=== PATIENT | female | born 1935 | race Asian ===

== ENCOUNTER 2022-01-08 06:02 | Inpatient (IN) | payer OTHER ==
[~2022-01-08] VITALS: Ht 160 cm; Wt 66.3 kg
[2022-01-08] VITALS (7 sets, daily range): BP systolic 84–139; BP diastolic 38–55
[2022-01-08 06:23] LABS: ABG BASE EXCESS 3.8 mmol/L (-2.0-3.0); ABG CARBOXYHEMOGLOBIN 0.2 % (0.0-1.5); ABG HCO3 27.3 mmol/L (22.0-26.0); ABG METHEMOGLOBIN 0.3 % (0.0-1.5); ABG OXYGEN CONTENT 16.5 mL/dL (15.0-23.0); ABG OXYGEN SATURATION 99.7 % (95.0-98.0); ABG OXYHEMOGLOBIN 99.2 % (94.0-100.0); ABG PCO2 50 mmHg (35-45); ABG PH 7.377 (7.35-7.450); ABG TOTAL HEMOGLOBIN 11.1 G/dL (12.0-18.0); PO2, ARTERIAL BG 386.2 mmHg (71.0-79.0); SOURCE, BLOOD GAS ARTERIAL; TEMPERATURE, FAHRENHEIT, BG 98.5 FAHREN (96.0-98.6)
[2022-01-08 06:24] LABS: O2 DEVICE,BLOOD GAS VENTILATOR (ROOM AIR); PEEP,BG 5 cm H2O; SITE, BLOOD GAS RT BRACHIAL; VT, ABG 400 ml
[2022-01-08] MEDS ORDERED: CefTRIAXone 1 GM/DEXTROSE 50 ML IV ONE (06:30)
[2022-01-08] MEDS ORDERED: MIDAZOLAM HCL 2 MG/2 ML VIAL IVP ONE (06:30)
[2022-01-08] MEDS ORDERED: MIDAZOLAM HCL 5 MG/ML VIAL IVP ONE (06:30)
[2022-01-08] MEDS ORDERED: ETOMIDATE 2 MG/ML 10 ML VIAL IVP ONE (06:30)
[2022-01-08] MEDS ORDERED: FentaNYL CIT 1000MCG/0.9% NACL 100 ML IV PRN ×2 (06:30→20:30)
[2022-01-08] MEDS ORDERED: ROCURONIUM BROMIDE 10 MG/ML 5 ML VIAL IVP ONE (06:30)
[2022-01-08 06:47] LABS: BASOPHILS % (AUTO) 0.9 % (0.0-2.0); EOSINOPHILS % (AUTO) 2.1 % (1.0-6.0); HEMATOCRIT 32.6 % (36-46); HEMOGLOBIN 10.3 g/dL (12.0-16.0); LYMPHOCYTES % (AUTO) 37.2 % (22.0-44.0); MEAN CORPUSCULAR HEMOGLOBIN 25.3 pg (26.0-34.0); MEAN CORPUSCULAR HGB CONC 31.6 G/dL (31.0-37.0); MEAN CORPUSCULAR VOLUME 80 fL (80-100); MONOCYTES # (AUTO) 0.8 K/uL (0.1-1.0); MONOCYTES % (AUTO) 9.9 % (2.0-9.0); NEUTROPHILS % (AUTO) 49.9 % (40.0-70.0); PLATELET COUNT (AUTO) 371 K/uL (150-450); RED BLOOD CELL COUNT(AUTO) 4.06 MIL/uL (4.00-5.20)
[2022-01-08 06:56] LABS: ANION GAP 6 mmol/L (8-16); CALCIUM, TOTAL 9.1 mg/dL (8.8-10.5); CARBON DIOXIDE 32 mmol/L (22-29); CHLORIDE 99 mmol/L (98-107); CREATININE 1.72 mg/dL (0.60-1.30); GLOMERULAR FILTR. RATE CALC 28 mL/min (>60); GLUCOSE,RANDOM 262 mg/dL (70-110); POTASSIUM 4.6 mmol/L (3.5-5.1); SODIUM SERUM 137 mmol/L (136-145); UREA NITROGEN, BLOOD 28 mg/dL (7-18)
[2022-01-08 07:03] LABS: INFLUENZA TYPE A NEGATIVE FOR TYPE A (NEGATIVE); INFLUENZA TYPE B NEGATIVE FOR TYPE B (NEGATIVE)
[2022-01-08 07:04] LABS: LACTIC ACID 1.8 mmol/L (0.4-2.0)
[2022-01-08 07:10] LABS: AMMONIA 74 umol/L (11-32)
[2022-01-08 07:14] LABS: B-TYPE NATRIURETIC PEPTIDE 521 pg/mL (0-100)
[2022-01-08 07:21] LABS: ALANINE AMINOTRANSFERASE 20 U/L (12-78); ALKALINE PHOSPHATASE 94 U/L (46-116); ASPARTATE AMINOTRANSFERASE 51 U/L (15-37); BILIRUBIN,TOTAL 0.5 mg/dL (0.1-1.0); C-REACTIVE PROTEIN QUANT 0.53 mg/dL (0.00-0.30); CREATINE KINASE, TOTAL ONLY 76 U/L (26-192); FERRITIN 23 ng/mL (8-252); FREE T4 (FREE THYROXINE) 1.57 ng/dL (0.76-1.46); LACTATE DEHYDROGENASE 301 U/L (81-234); LIPASE 73 U/L (73-393); THYROID STIMULATING HORMONE 4.84 uIU/mL (0.36-3.74); TOTAL PROTEIN, SERUM 7.6 g/dL (6.4-8.2)
[2022-01-08 08:09] LABS: COVID AG,FIA SOURCE NASOPHARYNGEAL
[2022-01-08 08:13] LABS: APPEARANCE,URINE CLEAR (CLEAR); BILIRUBIN,URINE NEGATIVE (NEGATIVE); GLUCOSE, URINE (UA) NEGATIVE (NEGATIVE); KETONES,URINE NEGATIVE (NEGATIVE); LEUKOCYTE ESTERASE ,URINE NEGATIVE (NEGATIVE); NITRATE,URINE NEGATIVE (NEGATIVE); PROTEIN,URINE NEGATIVE (NEGATIVE)
[2022-01-08 08:18] LABS: AMPHET/METH SCREEN,URINE NEGATIVE (NEGATIVE); BARBITURATE SCREEN, URINE NEGATIVE (NEGATIVE); BENZODIAZEPINES SCREEN,URINE POSITIVE (NEGATIVE); CANNABINOID SCREEN,URINE NEGATIVE (NEGATIVE); COCAINE SCREEN,URINE NEGATIVE (NEGATIVE); METHADONE SCREEN, URINE NEGATIVE (NEGATIVE); OPIATE SCREEN,URINE NEGATIVE (NEGATIVE); PHENCYCLIDINE SCREEN,URINE NEGATIVE (NEGATIVE)
[2022-01-08] MEDS ORDERED: ONDANSETRON HCL 4 MG/2 ML VIAL IVP PRN ×2 (08:30→13:15)
[2022-01-08] MEDS ORDERED: 0.9% SODIUM CHLORIDE 10 ML SYRINGE IVP PRN (08:30)
[2022-01-08] MEDS ORDERED: ACETAMINOPHEN 325 MG TABLET PO PRN ×2 (08:30→13:15)
[2022-01-08 08:49] LABS: OCCULT BLOOD,URINE MODERATE (NEGATIVE)
[2022-01-08 08:50] LABS: BACTERIA,URINE None Seen /HPF (None Seen); WBC,URINE None Seen /HPF (0-5)
[2022-01-08 09:07] LABS: D-DIMER 18.17 mg/L FEU (0.00-0.50); PROTHROMBIN TIME 105.9 SEC (9.4-11.6)
[2022-01-08 09:12] LABS: INR 12.5 (0.9-1.1)
[2022-01-08] MEDS ORDERED: INSULIN LISPRO 100 UNITS/ML SQ PRN (13:00)
[2022-01-08] MEDS ORDERED: DIGOXIN 250 MCG/ML 2 ML AMP IVP ONE (13:00)
[2022-01-08] MEDS ORDERED: APIXABAN 2.5 MG TABLET NG SCH (13:00)
[2022-01-08] MEDS ORDERED: SODIUM CHLORIDE 0.9% 1,000 ML IV ONE (13:00)
[2022-01-08] MEDS ORDERED: DEXTROSE 50%-WATER 25 GM/50 ML SYRINGE IVP PRN (13:00)
[2022-01-08] MEDS ORDERED: BISACODYL 10 MG RECTAL RECTAL SUPPOSITORY PR PRN (13:15)
[2022-01-08] MEDS ORDERED: HEPARIN SODIUM 25000 UNITS/D5W 250 ML IV SCH (13:15)
[2022-01-08] MEDS ORDERED: HEPARIN SODIUM,PORCINE 5,000 UNITS/ML VIAL IVP PRN ×2 (13:45)
[2022-01-08] MEDS ORDERED: HEPARIN SODIUM 25000 UNITS/D5W 250 ML IV PRN (13:45)
[2022-01-08 14:21] LABS: BASOPHILS % (AUTO) 0.4 % (0.0-2.0); EOSINOPHILS % (AUTO) 0.2 % (1.0-6.0); HEMATOCRIT 31.6 % (36-46); LYMPHOCYTES # (AUTO) 1.1 K/uL (1.0-4.8); LYMPHOCYTES % (AUTO) 12.8 % (22.0-44.0); MEAN CORPUSCULAR HGB CONC 31.7 G/dL (31.0-37.0); MEAN CORPUSCULAR VOLUME 79 fL (80-100); MONOCYTES % (AUTO) 11.3 % (2.0-9.0); NEUTROPHILS # (AUTO) 6.7 K/uL (1.8-7.7); NEUTROPHILS % (AUTO) 75.3 % (40.0-70.0); PLATELET COUNT (AUTO) 330 K/uL (150-450); RED CELL DISTRIBUTION WIDTH 19.7 % (11.5-14.5)
[2022-01-08 14:35] LABS: PROTHROMBIN TIME 102.2 SEC (9.4-11.6)
[2022-01-08] MEDS: PHYTONADIONE 10 MG/1 ML AMP SQ SCH (16:00)
[2022-01-08] MEDS: NOREPINEPHRINE 4 MG/D5%-WATER 250 ML IV PRN ×2 (18:38→19:39)
[2022-01-08] MEDS ORDERED: ATORVASTATIN CALCIUM 20 MG TABLET NG SCH (21:00)
[2022-01-08] MEDS: DOCUSATE SODIUM 100 MG CAPSULE PO SCH (21:05)
[2022-01-08] MEDS ORDERED: SODIUM CHLORIDE 0.9% 250 ML IV ONE (22:54)
[2022-01-08 23:26] LABS: GLUCOMETER DEV NAME(LOC) AHU.; GLUCOSE,POINT OF CARE 109 MG/DL (70-110)
[2022-01-09] VITALS (12 sets, daily range): BP systolic 104–138; BP diastolic 29–63
[2022-01-09] MEDS: NOREPINEPHRINE 4 MG/D5%-WATER 250 ML IV PRN ×2 (02:55→20:14)
[2022-01-09 06:34] LABS: PROTHROMBIN TIME 77.3 SEC (9.4-11.6)
[2022-01-09 06:37] LABS: INR 8.8 (0.9-1.1)
[2022-01-09] MEDS ORDERED: PANTOPRAZOLE SODIUM 40 MG/VIAL IVP SCH (09:00)
[2022-01-09] MEDS ORDERED: FentaNYL CIT 1000MCG/0.9% NACL 100 ML IV PRN (09:45)
[2022-01-09] MEDS: DOCUSATE SODIUM 100 MG CAPSULE PO SCH (10:18)
[2022-01-09] MEDS: PHYTONADIONE 10 MG/1 ML AMP SQ SCH (10:19)
[2022-01-09 12:08] LABS: ABG BASE EXCESS 4.9 mmol/L (-2.0-3.0); ABG CARBOXYHEMOGLOBIN 0.2 % (0.0-1.5); ABG HCO3 27.7 mmol/L (22.0-26.0); ABG METHEMOGLOBIN 0.3 % (0.0-1.5); ABG OXYGEN CONTENT 14.8 mL/dL (15.0-23.0); ABG OXYGEN SATURATION 94.1 % (95.0-98.0); ABG OXYHEMOGLOBIN 93.6 % (94.0-100.0); ABG PCO2 59 mmHg (35-45); ABG PH 7.334 (7.35-7.450); ABG TOTAL HEMOGLOBIN 11.2 G/dL (12.0-18.0); SOURCE, BLOOD GAS ARTERIAL; TEMPERATURE, FAHRENHEIT, BG 98.6 FAHREN (96.0-98.6)
[2022-01-09 12:12] LABS: SITE, BLOOD GAS RT RADIAL
[2022-01-09 12:13] LABS: ABG A-A DIFF O2 99.7 mmHg (10-20.0); O2 DEVICE,BLOOD GAS VENTILATOR (ROOM AIR); VENT MODE, BG CPAP (ROOM AIR)
[2022-01-09 12:14] LABS: CPAP, BG 0 cm H2O; PRESSURE SUPPORT, BG 8 cm H2O; SPONTANEOUS VT, BG 340 ml
[2022-01-09 17:46] LABS: GLUCOSE,POINT OF CARE 126 MG/DL (70-110)
[2022-01-09 21:36] LABS: GLUCOMETER DEV NAME(LOC) AHU.; GLUCOSE,POINT OF CARE 128 MG/DL (70-110)
[2022-01-12 06:06] LABS: GLUCOSE,POINT OF CARE 116 MG/DL (70-110)
== END 2022-01-09 21:38 | disposition short-term general hospital (02) | DRG 208 ==
LOC: EMS 06:17 → ICUN 08:30 → ICU 01-09 16:35
PROVIDERS: ADMIT Hospitalist; ATTEND Hospitalist
PROC: 5A1935Z Respiratory Ventilation, Less than 24 Consecutive Hours (ICD-10-PCS; principal; 2022-01-08)
PROC: 0BH17EZ Insertion of Endotracheal Airway into Trachea, Via Natural or Artificial Opening (ICD-10-PCS; 2022-01-08)
DX: J96.01 Acute respiratory failure with hypoxia (principal); J91.8 Pleural effusion in other conditions classified elsewhere; N17.9 Acute kidney failure, unspecified; D68.9 Coagulation defect, unspecified; I48.20 Chronic atrial fibrillation, unspecified; E72.20 Disorder of urea cycle metabolism, unspecified; R57.9 Shock, unspecified; Z99.11 Dependence on respirator [ventilator] status; E78.5 Hyperlipidemia, unspecified; E03.9 Hypothyroidism, unspecified; I10 Essential (primary) hypertension; D64.9 Anemia, unspecified; I34.0 Nonrheumatic mitral (valve) insufficiency; K57.30 Diverticulosis of large intestine without perforation or abscess without bleeding; E11.65 Type 2 diabetes mellitus with hyperglycemia; T45.515A Adverse effect of anticoagulants, initial encounter; Z20.822 Contact with and (suspected) exposure to COVID-19; Z98.84 Bariatric surgery status; Y92.89 Other specified places as the place of occurrence of the external cause
CPT/HCPCS: 31500; 36600; 70450; 71045; 71250; 72192; 74150; 80053; 81001; 82140; 82550; 82728; 82805; 82962; 83605; 83615; 83690; 83735; 83880; 84145; 84439; 84443; 84484; 85025; 85379; 85384; 85610; 85730; 86140; 87040; 87081; 87804; 93005; 93306; 94002; 94003; 99291; 99292; C9113; G0378; G0480; J0696; J1160; J1644; J2250; J3430; J3490; J7030; J7050; Q9967; 36415-L1; 36415-TC